=== PATIENT | female | born 1990 | race Two or more races ===

== ENCOUNTER 2021-07-29 19:24 | Emergency (ER) | payer MEDICAID, OTHER ==
[~2021-07-29] VITALS: Ht 160 cm; Wt 61.2 kg
[2021-07-29 20:06] VITALS: BP 120/55
== END 2021-07-29 20:42 | disposition home or self-care (01) ==
LOC: ER 19:24
DX: S61.411A Laceration without foreign body of right hand, initial encounter (principal); W18.39XA Other fall on same level, initial encounter; Y93.89 Activity, other specified; Y92.69 Other specified industrial and construction area as the place of occurrence of the external cause; Y99.8 Other external cause status